=== PATIENT | female | born 1955 | race Caucasian/White ===

== ENCOUNTER → 2018-05-27 11:05 | Outpatient (CLI) | payer OTHER, SELFPAY ==
--- NOTE | 2018-05-27 11:16 | DI.MG.S_ITS ---
Patient Name: KAREN ELLISON date: 1955 Sex: F Attending Physician: Yandy Indications: Date: 05/27/2018 11:16 At the request of: YIMI URIAS Procedure: MM screening mammo BI BILATERAL DIGITAL SCREENING MAMMOGRAM 3D/2D WITH CAD: 05/27/2018 CLINICAL: Routine screening. Family history of breast cancer. Comparison is made to exams dated: 02/06/2017 mammogram, 01/11/2016 mammogram, and 11/16/2014 mammogram - [facility]. There are scattered fibroglandular elements in both breasts. Current study was also evaluated with a Computer Aided Detection (CAD) system. No significant masses, calcifications, or other findings are seen in either breast. IMPRESSION: NEGATIVE There is no mammographic evidence of malignancy. A 1 year screening mammogram is recommended. This exam was interpreted at Station ID: [id number]. NOTE: For mammograms, a report in lay terms will be sent to the patient. Approximately 15% of breast malignancies will not be visualized mammographically. In the management of a palpable breast mass, a negative mammogram must not discourage biopsy of a clinically suspicious lesion. Electronically Signed By: Rashaun sunshine/pennaga:05/27/2018 20:56:57 letter sent: Normal Exam ACR BI-RADS Category 1: Negative 3341F
== END ==
PROVIDERS: PCP Family Medicine; Visit Provider Family Medicine
DX: Z12.31 Encounter for screening mammogram for malignant neoplasm of breast (principal); Z80.3 Family history of malignant neoplasm of breast
CPT/HCPCS: 77063; 77067

== ENCOUNTER → 2018-10-21 10:47 | Outpatient (CLI) | payer OTHER, SELFPAY ==
[2018-10-21 13:09] LABS: Thyroid Stimulating Hormone 2.76 uIU/mL (0.47-4.68)
== END ==
PROVIDERS: PCP Family Medicine; Visit Provider Family Medicine
DX: E03.9 Hypothyroidism, unspecified (principal)
CPT/HCPCS: 36415; 84443

== ENCOUNTER → 2019-01-01 11:34 | Outpatient (CLI) | payer OTHER, SELFPAY ==
[2019-01-01 12:39] LABS: Cholesterol 257 mg/dL (140-199); Glucose 96 mg/dL (80-110); HDL Cholesterol 82 mg/dL (40-60); LDL Cholesterol Calculated 156 mg/dL (<100); Triglycerides 96 mg/dL (35-150)
== END ==
PROVIDERS: PCP Family Medicine; Visit Provider Family Medicine
DX: E03.9 Hypothyroidism, unspecified (principal); E78.5 Hyperlipidemia, unspecified; R73.09 Other abnormal glucose
CPT/HCPCS: 36415; 80061; 82947

== ENCOUNTER → 2020-04-28 12:11 | Outpatient (CLI) | payer OTHER, SELFPAY ==
[2020-04-28 13:45] LABS: Cholesterol 200 mg/dL (140-199); HDL Cholesterol 57 mg/dL (40-60); LDL Cholesterol Calculated 128 mg/dL (<100); Triglycerides 74 mg/dL (35-150)
[2020-04-28 14:15] LABS: Thyroid Stimulating Hormone 1.28 uIU/mL (0.47-4.68)
== END ==
PROVIDERS: PCP Family Medicine; Referring Provider Family Medicine; Visit Provider Family Medicine
DX: Z13.220 Encounter for screening for lipoid disorders (principal); E03.9 Hypothyroidism, unspecified
CPT/HCPCS: 36415; 80061; 84443

== ENCOUNTER → 2020-08-26 12:13 | Outpatient (CLI) | payer OTHER, SELFPAY ==
--- NOTE | 2020-08-26 | DI.MG.S_ITS ---
BILATERAL DIGITAL SCREENING MAMMOGRAM 3D/2D WITH CAD: 08/26/2020 CLINICAL: Routine screening. Family history of breast cancer. Comparison is made to exams dated: 05/27/2018 mammogram, 02/06/2017 mammogram, and 01/11/2016 mammogram - [facility]. There are scattered fibroglandular elements in both breasts. Current study was also evaluated with a Computer Aided Detection (CAD) system. No significant masses, calcifications, or other findings are seen in either breast. There has been no significant interval change. IMPRESSION: NEGATIVE There is no mammographic evidence of malignancy. A 1 year screening mammogram is recommended. This exam was interpreted at Station ID: [id number]. NOTE: For mammograms, a report in lay terms will be sent to the patient. Approximately 15% of breast malignancies will not be visualized mammographically. In the management of a palpable breast mass, a negative mammogram must not discourage biopsy of a clinically suspicious lesion. Electronically Signed By: Juan Francisco fernandez/aretha:08/26/2020 12:40:02 letter sent: Normal Exam ACR BI-RADS Category 1: Negative 3341F
== END ==
PROVIDERS: PCP Family Medicine; Referring Provider Family Medicine; Visit Provider Family Medicine
DX: Z12.31 Encounter for screening mammogram for malignant neoplasm of breast (principal); Z80.3 Family history of malignant neoplasm of breast
CPT/HCPCS: 77063; 77067

== ENCOUNTER → 2021-04-21 11:47 | Outpatient (CLI) | payer OTHER, SELFPAY ==
[2021-04-21 12:34] LABS: Add Manual Diff / Slide Review NO; Basophils Absolute Auto 0 /uL (0-100); Basophils Percent Auto 0.7 % (0-2); Eosinophils Absolute Auto 100 /uL (0-450); Eosinophils Percent Auto 1.9 % (2-4); Hematocrit 41.4 % (36-46); Hemoglobin 14.4 g/dL (12.0-16.0); Lymphocytes Absolute Auto 1800 /uL (1100-4500); Lymphocytes Percent Auto 39.1 % (25-40); Mean Corpuscular HGB Conc 34.7 % (30-36); Mean Corpuscular Hemoglobin 32.5 PG (26-34); Mean Corpuscular Volume 93.8 fL (80-100); Monocytes Absolute Auto 400 /uL (0-900); Monocytes Percent Auto 7.9 % (3-14); Neutrophils Absolute Auto 2300 /uL (1500-7000); Neutrophils Percent Auto 50.4 % (50-75); Platelet Count 272 X10^3/uL (150-400); Red Blood Cell Count 4.42 X10^6/uL (4.0-5.2); Red Cell Distribution Width 13.2 % (11.6-14.8); White Blood Cell Count 4.6 X10^3/uL (4.5-11.0)
[2021-04-21 14:52] LABS: Alanine Aminotransferase 18 IU/L (<35); Albumin 4.2 g/dL (3.5-5.0); Albumin Globulin Ratio 1.7 (1.0-2.8); Alkaline Phosphatase 54 U/L (38-126); Aspartate Aminotransferase 29 IU/L (14-36); BUN Creatinine Ratio 21.7 (6-22); Bilirubin Total 0.8 mg/dL (0.2-1.3); Blood Urea Nitrogen 15 mg/dL (7-17); Calcium 9.7 mg/dL (8.4-10.2); Carbon Dioxide 28 mmol/L (22-32); Chloride 104 mmol/L (98-107); Cholesterol 241 mg/dL (140-199); Estimated Glomerular Filt Rate > 60.0 mL/min (>60); Globulin 2.5 g/dL (1.7-4.1); Glucose 94 mg/dL (80-110); HDL Cholesterol 91 mg/dL (40-60); HEMOLYSIS < 15 (0-50); LDL Cholesterol Calculated 136 mg/dL (<100); Potassium 4.4 mmol/L (3.4-5.1); Sodium 138 mmol/L (137-145); Total Protein 6.7 g/dL (6.3-8.2); Triglycerides 71 mg/dL (35-150)
[2021-04-21 15:23] LABS: Thyroid Stimulating Hormone 2.96 uIU/mL (0.47-4.68)
== END ==
PROVIDERS: PCP Family Medicine; Referring Provider Family Medicine; Visit Provider Family Medicine
DX: E03.9 Hypothyroidism, unspecified (principal)
CPT/HCPCS: 36415; 80053; 80061; 84443; 85025

== ENCOUNTER → 2021-09-27 08:02 | Outpatient (CLI) | payer OTHER, SELFPAY ==
--- NOTE | 2021-09-27 08:04 | DI.MG.S_ITS ---
BILATERAL DIGITAL SCREENING MAMMOGRAM 3D/2D WITH CAD: 09/27/2021 CLINICAL: Routine screening. Family history of breast cancer. Comparison is made to exams dated: 08/26/2020 mammogram, 05/27/2018 mammogram, and 02/06/2017 mammogram - [facility]. There are scattered fibroglandular elements in both breasts. Current study was also evaluated with a Computer Aided Detection (CAD) system. No significant masses, calcifications, or other findings are seen in either breast. There has been no significant interval change. IMPRESSION: NEGATIVE There is no mammographic evidence of malignancy. A 1 year screening mammogram is recommended. This exam was interpreted at Station ID: [id number]. NOTE: For mammograms, a report in lay terms will be sent to the patient. Approximately 15% of breast malignancies will not be visualized mammographically. In the management of a palpable breast mass, a negative mammogram must not discourage biopsy of a clinically suspicious lesion. Electronically Signed By: Garett fall/aretha:09/28/2021 08:30:41 letter sent: Normal Exam ACR BI-RADS Category 1: Negative 3341F
== END ==
PROVIDERS: PCP Family Medicine; Referring Provider Family Medicine; Visit Provider Family Medicine
DX: Z12.31 Encounter for screening mammogram for malignant neoplasm of breast (principal); Z80.3 Family history of malignant neoplasm of breast
CPT/HCPCS: 77063; 77067

== ENCOUNTER → 2022-04-28 09:00 | Outpatient (CLI) | payer MEDICARE, OTHER, SELFPAY ==
[2022-04-29 03:44] LABS: TSH w/ Reflex to FT4 7.23 uIU/mL (0.47-4.68)
[2022-04-30 14:54] LABS: Free T4, Direct Thyroxine 1.57 ng/dL (0.78-2.19)
== END ==
PROVIDERS: PCP Family Medicine; Referring Provider Family Medicine; Visit Provider Family Medicine
DX: E03.9 Hypothyroidism, unspecified (principal)
CPT/HCPCS: 36415; 84439; 84443

== ENCOUNTER → 2022-06-22 11:03 | Outpatient (CLI) | payer MEDICARE, OTHER, SELFPAY ==
[2022-06-22 14:32] LABS: Thyroid Stimulating Hormone 1.45 uIU/mL (0.47-4.68)
== END ==
PROVIDERS: PCP Family Medicine; Referring Provider Family Medicine; Visit Provider Family Medicine
DX: E03.9 Hypothyroidism, unspecified (principal)
CPT/HCPCS: 36415; 84443

== ENCOUNTER → 2022-09-06 14:54 | Outpatient (CLI) | payer MEDICARE, OTHER, SELFPAY ==
[2022-09-06 16:04] LABS: Cholesterol 245 mg/dL (140-199); Glucose 88 mg/dL (80-110); HDL Cholesterol 66 mg/dL (40-60); LDL Cholesterol Calculated 158 mg/dL (<100); Triglycerides 104 mg/dL (35-150)
== END ==
PROVIDERS: PCP Family Medicine; Referring Provider Family Medicine; Visit Provider Family Medicine
DX: E78.5 Hyperlipidemia, unspecified (principal); Z13.1 Encounter for screening for diabetes mellitus
CPT/HCPCS: 36415; 80061; 82947

== ENCOUNTER → 2022-09-14 14:44 | Outpatient (CLI) | payer MEDICARE, OTHER, SELFPAY | PROVIDERS: PCP Family Medicine; Referring Provider Family Medicine; Visit Provider Family Medicine | DX: Z78.0 Asymptomatic menopausal state (principal); Z13.820 Encounter for screening for osteoporosis | CPT/HCPCS: 77080; 77081 ==

== ENCOUNTER → 2022-12-25 09:00 | Outpatient (CLI) | payer MEDICARE, OTHER, SELFPAY ==
--- NOTE | 2022-12-25 09:02 | DI.MG.S_ITS ---
BILATERAL DIGITAL SCREENING MAMMOGRAM 3D/2D WITH CAD: 12/25/2022 CLINICAL: Routine screening. Family history of breast cancer. Comparison is made to exams dated: 09/27/2021 mammogram, 08/26/2020 mammogram, 05/27/2018 mammogram, and 02/06/2017 mammogram - [facility]. There are scattered areas of fibroglandular density in both breasts (category b / 25%-50% glandular tissue). Current study was also evaluated with a Computer Aided Detection (CAD) system. No significant masses, calcifications, or other findings are seen in either breast. There has been no significant interval change. IMPRESSION: NEGATIVE There is no mammographic evidence of malignancy. A 1 year screening mammogram is recommended. This exam was interpreted at Station ID: [id number]. NOTE: For mammograms, a report in lay terms will be sent to the patient. Approximately 15% of breast malignancies will not be visualized mammographically. In the management of a palpable breast mass, a negative mammogram must not discourage biopsy of a clinically suspicious lesion. Electronically Signed By: Corby muñiz/aretha:12/25/2022 10:08:35 letter sent: Normal Exam ACR BI-RADS Category 1: Negative 3341F
== END ==
PROVIDERS: PCP Family Medicine; Referring Provider Family Medicine; Visit Provider Family Medicine
DX: Z12.31 Encounter for screening mammogram for malignant neoplasm of breast (principal); Z80.3 Family history of malignant neoplasm of breast
CPT/HCPCS: 77063; 77067

== ENCOUNTER → 2023-11-22 11:22 | Outpatient (CLI) | payer MEDICARE, OTHER, SELFPAY ==
[2023-11-22 14:43] LABS: Cholesterol 258 mg/dL (140-199); Glucose 84 mg/dL (80-110); Triglycerides 109 mg/dL (35-150)
[2023-11-22 14:58] LABS: HDL Cholesterol 82 mg/dL (40-60); LDL Cholesterol Calculated 154 mg/dL (<100)
[2023-11-22 15:27] LABS: TSH w/ Reflex to FT4 0.77 uIU/mL (0.47-4.68)
== END ==
PROVIDERS: PCP Family Medicine; Referring Provider Family Medicine; Visit Provider Family Medicine
DX: Z13.9 Encounter for screening, unspecified (principal); E03.9 Hypothyroidism, unspecified
CPT/HCPCS: 36415; 80061; 82947; 84443

== ENCOUNTER → 2024-01-18 12:45 | Outpatient (CLI) | payer MEDICARE, OTHER, SELFPAY ==
--- NOTE | 2024-01-18 12:46 | DI.MG.S_ITS ---
BILATERAL DIGITAL SCREENING MAMMOGRAM 3D/2D WITH CAD: 01/18/2024 CLINICAL: Routine screening. Family history of breast cancer. Comparison is made to exams dated: 12/25/2022 mammogram, 09/27/2021 mammogram, and 08/26/2020 mammogram - [facility]. There are scattered areas of fibroglandular density in both breasts (category b / 25%-50% glandular tissue). Current study was also evaluated with a Computer Aided Detection (CAD) system. No significant masses, calcifications, or other findings are seen in either breast. There has been no significant interval change. IMPRESSION: NEGATIVE There is no mammographic evidence of malignancy. A 1 year screening mammogram is recommended. Based on the Tyrer Cuzick model (a risk assessment model) the patient's lifetime risk is 16.5% and her 10 year risk is 8.5%. According to the ACR, ACS, and NCCN guidelines, an annual breast MRI exam along with mammogram is recommended if the patient's lifetime risk is 20% or greater. This exam was interpreted at Station ID: [id number]. NOTE: For mammograms, a report in lay terms will be sent to the patient. Approximately 15% of breast malignancies will not be visualized mammographically. In the management of a palpable breast mass, a negative mammogram must not discourage biopsy of a clinically suspicious lesion. Electronically Signed By: Judie Hi M.D., PH.D eb/pennaga:01/18/2024 13:39:46 letter sent: Normal Exam ACR BI-RADS Category 1: Negative 3341F
== END ==
LOC: MAMMO 12:46
PROVIDERS: PCP Family Medicine; Referring Provider Family Medicine; Visit Provider Family Medicine
DX: Z12.31 Encounter for screening mammogram for malignant neoplasm of breast (principal); Z80.3 Family history of malignant neoplasm of breast; R92.323 Mammographic fibroglandular density, bilateral breasts
CPT/HCPCS: 77063; 77067

== ENCOUNTER → 2024-03-09 08:36 | Outpatient (CLI) | payer MEDICARE, OTHER, SELFPAY ==
--- NOTE | 2024-03-09 | DI.MRI.S_ITS ---
PROCEDURE: MR ANKLE LT WO CON INDICATIONS: LEFT ANKLE PAIN TECHNIQUE: Noncontrast sagittal T1 spin echo and T2 fast spin echo with fat saturation, axial proton density fast spin echo and T2 fast spin echo with fat saturation, coronal T1 spin echo and T2 fast spin echo with fat saturation through the ankle/hindfoot. COMPARISON: [facility], CR, XR ANKLE 3 VIEWS WEIGHT BEARING LEFT, 01/29/2024, 13:46. FINDINGS: Image quality: Excellent. Bones and joints: There is a depressed predominantly transverse fracture of the talar dome. Fracture lines are seen extending to the talar dome articular surface into the sinus tarsi without significant step-off. Moderate osseous edema is seen throughout the talus. There is also mild edema within the distal tibia and within the dorsal calcaneus. Degenerative changes are seen in the 2nd through 4th tarsometatarsal joints and the naviculocuneiform articulations. Nonedematous plantar calcaneal enthesophyte is present. No hindfoot coalitions. Medial structures: Intermediate signal within the deep fibers of the deltoid ligament suspicious for a low-grade sprain. The spring ligament components appear to be intact. Moderate fluid is seen within the medial flexor tendons and may be secondary to communication with the tibiotalar joint versus tenosynovitis. The posterior tibial neurovascular bundle appears normal within the tarsal tunnel, without extrinsic mass effect. Lateral structures: There is complete tearing of the anterior talofibular ligament. Low-grade sprain of the calcaneofibular ligament. Posterior talofibular ligament appears to be intact. There is a low-grade sprain of the anterior tibiofibular ligament. Posterior tibiofibular ligament is intact. There is longitudinal split tearing of the distal peroneus brevis tendon at the level of the distal fibula with tendon reconstitution at the level of the peroneal tubercle. Mild peroneus brevis and longus tenosynovitis. There is effacement of the normal fat signal in the sinus tarsi. Anterior structures: The tibialis anterior, extensor hallucis longus, and extensor digitorum longus tendons appear intact. Posterior and plantar structures: There is moderate Achilles tendinosis. Mild thickening of the proximal plantar fascia is seen without surrounding edema. 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 IMPRESSION: 1. Comminuted depressed fracture of the talar dome and proximal talus with moderate surrounding osseous edema. Fracture lines extend to the talar dome articular surface and sinus tarsi without significant step-off. 2. Mild osseous edema in the dorsal calcaneus and the distal tibia may be reactive or secondary to osseous contusions. 3. Complete tearing of the anterior talofibular ligament. Low-grade sprain of the calcaneofibular ligament. Low-grade sprain of the anterior tibiofibular ligament. 4. Longitudinal split tearing of the peroneus brevis tendon at the level of the distal fibula with distal tendon reconstitution at the level of the peroneal tubercle. Mild peroneus brevis and longus tenosynovitis. 5. Moderate fluid in the medial flexor tendon sheaths may be secondary to tibiotalar joint fluid or tenosynovitis. 6. Moderate Achilles tendinosis. 7. Mild chronic proximal plantar fasciitis. 8. Mild grade 2 fatty infiltration of the abductor osteoarthrosis minimi muscle is suspicious for chronic denervation changes/Massey neuropathy. Approved by: Garett Estrada M.D. on 03/10/2024 at 10:51
== END ==
PROVIDERS: PCP Family Medicine; Referring Provider Orthopaedic Surgery Foot and Ankle Surgery; Visit Provider Orthopaedic Surgery Foot and Ankle Surgery
DX: S92.142A Displaced dome fracture of left talus, initial encounter for closed fracture (principal); S93.492A Sprain of other ligament of left ankle, initial encounter; S93.412A Sprain of calcaneofibular ligament of left ankle, initial encounter; S93.432A Sprain of tibiofibular ligament of left ankle, initial encounter; S96.812A Strain of other specified muscles and tendons at ankle and foot level, left foot, initial encounter; M65.872 Other synovitis and tenosynovitis, left ankle and foot; M72.2 Plantar fascial fibromatosis; X58.XXXA Exposure to other specified factors, initial encounter
CPT/HCPCS: 73721

== ENCOUNTER → 2024-03-14 10:15 | Outpatient (CLI) | payer MEDICARE, OTHER, SELFPAY ==
[2024-03-14 11:37] LABS: Cholesterol 250 mg/dL (140-199); HDL Cholesterol 88 mg/dL (40-60); LDL Cholesterol Calculated 142 mg/dL (<100); Triglycerides 101 mg/dL (35-150)
[2024-03-14 11:46] LABS: Vitamin D 25 Hydroxy (D3) 28.3 ng/mL (30.0-100.0)
== END ==
PROVIDERS: PCP Family Medicine; Referring Provider Orthopaedic Surgery Foot and Ankle Surgery; Visit Provider Orthopaedic Surgery Foot and Ankle Surgery
DX: E55.9 Vitamin D deficiency, unspecified (principal); E78.5 Hyperlipidemia, unspecified
CPT/HCPCS: 36415; 80061; 82306

== ENCOUNTER → 2024-06-10 15:13 | Outpatient (CLI) | payer MEDICARE, OTHER, SELFPAY ==
--- NOTE | 2024-06-10 15:15 | DI.MRI.S_ITS ---
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 COMPARISON: [facility], MR, MR ANKLE LT WO CON, 03/09/2024, 9:07. FINDINGS: Image quality: Excellent. Bones and joints: Extensive edema throughout talus is seen with predominantly transverse fracture of the talar dome again seen without significant changes in overall appearance. Fracture line is noted extending to talar dome articular surface into sinus tarsi without significant step-off. There is interval heterogeneous T2 hypointensity within the talar dome concerning for developing avascular necrosis.. No collapse of the talar dome is seen. Mild edema involving adjacent dorsal aspect of posterior and mid calcaneus adjacent to subtalar joint is seen, decreased compared to previous study. Tiny osteochondral injury involving posterior medial aspect of distal tibial plafond is seen. No other area of abnormal marrow signal. Osteoarthritic changes are noted throughout midfoot and hindfoot joints. Well-defined plantar calcaneal enthesophyte is noted. Small to moderate amount of tibiotalar and subtalar joint effusion, no loose bodies. Medial structures: The posterior tibialis, flexor digitorum longus, and flexor hallucis longus tendons are mildly thickened with small amount of fluid distending tendon sheath at the level of distal talus and talonavicular joint.. The posterior tibial neurovascular bundle appears normal within the tarsal tunnel, without extrinsic mass effect. The deltoid ligament and spring ligament are thickened. Lateral structures: The anterior talofibular ligament is thickened with intrasubstance T2 hyperintense signal. The calcaneofibular, and posterior talofibular ligaments appear intact. More superiorly, the anterior and posterior tibiofibular ligaments appear intact, as is the intermalleolar ligament. The tibiofibular syndesmosis is normal in width at 2 mm or less. Markedly thickened peroneus longus and brevis tendons at the level of lateral malleolus tip extending to their distal insertions with small amount of fluid distending tendon sheath is seen. The sinus tarsi demonstrates normal fatty signal, without edema, fibrosis, or cyst formation. Visualized sinus tarsi components (cervical ligament, interosseous talocalcaneal ligament, roots of the inferior extensor retinaculum) appear normal. Anterior structures: The tibialis anterior, extensor hallucis longus, and extensor digitorum longus tendons appear intact. The dorsal talonavicular ligament appears intact. Posterior and plantar structures: Mild distal Achilles tendinosis near its insertion of posterior calcaneus is seen. No Achilles tendon rupture. Medial and lateral bands of the plantar fascia are of normal thickness. No abductor digiti quinti muscle atrophy to suggest Massey neuropathy. IMPRESSION: 1. Nondisplaced fracture through upper portion of talus/base of talar dome with interval development of geographic area of heterogeneous T1 hypointense and T2 hyperintense signal involving weight-bearing portion of talar dome concerning for developing osteo necrosis. No talar dome collapse is seen. Extensive marrow edema throughout rest of the talus. 2. Mild contusion involving posterior superior aspect of calcaneus without fracture line. No new fracture or dislocation. No other area of abnormal marrow signal. Midfoot and hindfoot joint osteoarthritis. 3. Moderate tibiotalar and subtalar joint effusion, no loose bodies. 4. Low-grade tenosynovitis involving flexor tendons. 5. Moderate grade tenosynovitis and intrasubstance partial-thickness tear involving peroneus tendons as above. 6. Low-grade medial ankle ligament sprain. Moderate grade sprain/intrasubstance partial-thickness tear involving ATFL. No full-thickness ankle ligament rupture. 7. Mild distal Achilles tendinosis. No Achilles tendon rupture. Dictated by: Alvarez Eugene M.D. on 06/11/2024 at 10:16 Approved by: Alvarez Eugene M.D. on 06/11/2024 at 10:38
== END ==
PROVIDERS: PCP Family Medicine; Referring Provider Orthopaedic Surgery Foot and Ankle Surgery; Visit Provider Orthopaedic Surgery Foot and Ankle Surgery
DX: S92.145A Nondisplaced dome fracture of left talus, initial encounter for closed fracture (principal); S90.02XA Contusion of left ankle, initial encounter; S93.492A Sprain of other ligament of left ankle, initial encounter; M19.072 Primary osteoarthritis, left ankle and foot; M87.00 Idiopathic aseptic necrosis of unspecified bone; M25.472 Effusion, left ankle; M65.872 Other synovitis and tenosynovitis, left ankle and foot
CPT/HCPCS: 73721

== ENCOUNTER → 2024-06-23 10:58 | Outpatient (CLI) | payer MEDICARE, OTHER, SELFPAY ==
--- NOTE | 2024-06-23 11:01 | DI.CT.S_ITS ---
PROCEDURE: CT LE RT WO CON INDICATIONS: AVN,MAVEN PROTOCOL TECHNIQUE: Noncontrast 1-1.5 mm axial sections acquired from above the tibiotalar joint to the bottom of the calcaneus, with coronal and sagittal reformats. COMPARISON: [facility] [place], CR, XR ANKLE 3 VIEWS WEIGHT BEARING LEFT, 04/22/2024, 13:09. [facility], MR, MR ANKLE LT WO CON, 06/10/2024, 15:43. FINDINGS: Image quality: Excellent. Bones: Mild lateral tilt of the patella. Joint space of the right knee is grossly well maintained. No acute fracture dislocation extending from the right knee to the right foot. Mild degenerative change of the 1st metatarsophalangeal joint. Multifocal degenerative changes of the midfoot, most pronounced and moderate at the medial cuneiform and the navicular articulation. Small plantar calcaneus enthesophyte. The talus dome is unremarkable. Soft tissues: Mild prepatellar subcutaneous edema. No significant right knee effusion. No right popliteal cyst. Mild subcutaneous edema of the anterior distal leg. The flexors, extensors, peroneal, and the Achilles tendon unremarkable. IMPRESSION: 1. Mild degenerative changes of the 1st metatarsophalangeal joint . Moderate degenerative changes of the midfoot. 2. Please note above finding pertains to the right leg. Dictated by: Germaine Barajas M.D. on 06/23/2024 at 17:58 Approved by: Germaine Barajas M.D. on 06/23/2024 at 18:07
[2024-06-23 14:28] LABS: Vitamin D 25 Hydroxy (D3) 33.6 ng/mL (30.0-100.0)
== END ==
PROVIDERS: PCP Family Medicine; Referring Provider Orthopaedic Surgery Foot and Ankle Surgery; Visit Provider Orthopaedic Surgery Foot and Ankle Surgery
DX: M87.00 Idiopathic aseptic necrosis of unspecified bone (principal); E55.9 Vitamin D deficiency, unspecified; R60.0 Localized edema
CPT/HCPCS: 36415; 73700; 82306

== ENCOUNTER → 2024-07-24 11:56 | Outpatient (CLI) | payer MEDICARE, OTHER, SELFPAY ==
[2024-07-24 12:32] LABS: Add Manual Diff / Slide Review NO; Basophils Absolute Auto 0 /uL (0-100); Basophils Percent Auto 0.8 % (0-2); Eosinophils Absolute Auto 100 /uL (0-450); Hematocrit 41.2 % (36-46); Hemoglobin 14.2 g/dL (12.0-16.0); Lymphocytes Absolute Auto 1700 /uL (1100-4500); Lymphocytes Percent Auto 32.5 % (25-40); Mean Corpuscular HGB Conc 34.3 % (30-36); Mean Corpuscular Hemoglobin 31.8 PG (26-34); Mean Corpuscular Volume 92.7 fL (80-100); Monocytes Absolute Auto 400 /uL (0-900); Monocytes Percent Auto 8.1 % (3-14); Neutrophils Absolute Auto 3000 /uL (1500-7000); Neutrophils Percent Auto 56.6 % (50-75); Platelet Count 273 X10^3/uL (150-400); Red Blood Cell Count 4.45 X10^6/uL (4.0-5.2); Red Cell Distribution Width 13.1 % (11.6-14.8); White Blood Cell Count 5.3 X10^3/uL (4.5-11.0)
--- NOTE | 2024-07-24 12:40 | EKG_ITS ---
[address] [address] Test Date: 2024-07-24 Pat Name: Lilliana Patrick Department[facility] Room: Gender: Female Size Tester: RUSSELL : 1955 Requested By: Order Number: [id number] Reading MD: Galo Yin Measurements Intervals [place] Rate: 49 P: 42 HI: 174 QRS: -23 QRSD: 80 T: 53 QT: 480 QTc: 433 Interpretive Statements Sinus bradycardia Nonspecific T wave abnormality Electronically Signed On 07-25-2024 17:56:43 PDT by Galo Yin
[2024-07-24 13:05] LABS: BUN Creatinine Ratio 20.8 (6-22); Blood Urea Nitrogen 16 mg/dL (7-17); Calcium 9.6 mg/dL (8.4-10.2); Carbon Dioxide 29 mmol/L (22-32); Chloride 104 mmol/L (98-107); Estimated Glomerular Filt Rate > 60 mL/min (>60); Glucose 79 mg/dL (80-110); HEMOLYSIS < 15 (0-50); Potassium 4.2 mmol/L (3.4-5.1); Sodium 136 mmol/L (137-145)
== END ==
PROVIDERS: PCP Family Medicine; Referring Provider Orthopaedic Surgery Foot and Ankle Surgery; Visit Provider Orthopaedic Surgery Foot and Ankle Surgery
DX: Z01.818 Encounter for other preprocedural examination (principal); Z01.812 Encounter for preprocedural laboratory examination
CPT/HCPCS: 36415; 80048; 85025; 93005

== ENCOUNTER 2024-09-03 06:48 | Inpatient (IN) | payer MEDICARE, OTHER, SELFPAY ==
[2024-08-25 09:31] VITALS: BMI 28.0
[2024-09-03] VITALS (13 sets, daily range): BP systolic 106–158; BP diastolic 66–100; PULSE 45–62; RESP 11–17; TEMP 35.6–36.7; O2SAT 95–98; BMI 28.1; BMI 30.4
--- NOTE | 2024-09-03 | DI.RAD.S_ITS ---
PROCEDURE: XR ANKLE LT MIN 3V INDICATIONS: TOTAL TALUS REPLACEMENT TECHNIQUE: Low resolution intraoperative fluoroscopic spot films were obtained COMPARISON: None. FINDINGS: Intraoperative fluoroscopic spot films show total talar replacement in good position. Moderate calcaneal spur present. IMPRESSION: Fluoroscopic guidance Approved by: Gilbert Cordero M.D. on 09/03/2024 at 12:54
[2024-09-03] MEDS: LACTATED RINGERS 1,000 ML 42 ML IV (07:32)
--- NOTE | 2024-09-03 07:38 | PM.PREOP ---
Pre-operative Note Interval Note History & Physical reviewed/Exam performed by Physician: Yes Changes to H&P: No
[2024-09-03] MEDS: ACETAMINOPHEN 325 MG TABLET 975 MG PO (10:37)
[2024-09-03] MEDS: CEFAZOLIN 2 GM/100 ML PREMIX 100 ML IV ×2 (11:30→21:07)
--- NOTE | 2024-09-03 11:46 | SUR.OPER ---
Supine on padded OR bed, head on pillow, arms secured on padded arm boards at <90 degrees abduction, legs uncrossed, operative leg elevated with blankets, blanket roll underneath patient left hip, safety belt at thigh, tape over blanket over lower legs.
[2024-09-03] MEDS: BUPIVACAINE 0.25% (PF) 30 ML, EPINEPHrine 0.15 MG INJ (11:53)
[2024-09-03] MEDS: LACTATED RINGERS 1,000 ML 100 ML IV (14:40)
[2024-09-03] MEDS: ACETAMINOPHEN 325 MG TABLET 650 MG PO ×2 (14:41→21:06)
--- NOTE | 2024-09-03 18:14 | PT-IP ANOTE ---
PT eval received and EMR checked. no available operative notes yet from the doctor. will wait for operative notes for precautions and weight bearing status.
--- NOTE | 2024-09-03 19:54 | PM.OP.1 ---
Operative Date/Time/Diagnoses Date of procedure: 09/03/24 Time of procedure: 19:57 Pre-op diagnosis: Avascular necrosis left talus, ankle sprain, low vitamin-D level, arthritis ankle Post-op diagnosis: same Procedure & Clinicians Procedure: 1. Total left talus replacement: Unlisted procedure leg or ankle CPT code 49140 left compared to total ankle arthroplasty CPT code 12986\ 2. Excision bone spur tibia CPT code 88293, left Same procedure as scheduled: Yes Indications: The patient is a 69-year-old female with left ankle pain and avascular necrosis of her talus over the last 11 months. She is failed extensive conservative treatment with nonweightbearing, bisphosphonates and vitamin-D supplementation. She has been indicated for left total talus replacement. She did have a 2nd opinion in [place] which concurred with the treatment plan. She otherwise has well-preserved tibial cartilage with a small anterior spur. She has been indicated for total talus replacement of the left talus and a spur removal of the distal tibia. The risks and benefits of the procedure have been discussed with the patient and given the opportunity to ask questions. The risks of surgery include but are not limited to infection, malunion, nonunion, persistence of pain, damage to nerves and blood vessels, posttraumatic arthritis, DVT, PE, cardiopulmonary complications and . The patient expressed a thorough understanding of the risks and benefits of surgery and has elected to proceed. Consent was signed in the office. Surgeon: Sherri Gonzales Commercial Manager: Pepito Gamboa Anesthesia Type: General, Peripheral nerve block and Local Operative Notes Findings: Talus avascular necrosis, left. Bone was yellow mon with easily delaminated cartilage during removal Closure Type: primary Specimen(s): none sent Prosthetic devices, grafts, tissues, transplants, or devices: [place] patient's specific talus spacer cobalt chromium nominal size Estimated Blood Loss (mL): 25 Blood products transfused: none Tourniquet time (min): 58 Procedure in detail: Patient was seen in the preoperative area the site of surgery was marked informed consent confirmed this was the left ankle. The patient was seen by the anesthesia team and regional block was placed for postoperative pain control. The patient was then brought back to the operating room by the anesthesia team positioned supine on the operative table. Bony prominences were well padded. A well-padded thigh tourniquet was applied. As well as an ipsilateral thigh bump. The left lower extremity was then prepped and draped in standard sterile fashion a formal time-out procedure was performed confirming the patient's side and site of surgery administration of appropriate preoperative antibiotic. All were in agreement. Attention turned to the left ankle a standard anterior incision bisecting the medial and lateral malleoli and just lateral to the tibial crest was taken from just above the ankle to the navicular. This was approximately 8 cm in length. This taken down through the skin subcutaneous tissue. Care was taken to protect the superficial peroneal nerve branch. The tendon sheath over the EHL was then incised. Interval between the EHL and tibialis anterior was developed with the neurovascular bundle retracted with the EHL. Suppressive dissection was taken onto the distal tibia and ankle joint capsule carefully elevating the capsule using the Bovie cautery creating good thick capsule flaps medially and laterally preserving the attachment and doing suppressive dissection right off the talus bone and distal tibia. Distal tibial spur excision. There was some distal anterior and anterior lateral tibial spurring this was easily removed with a rongeur and a small osteotome. This was the anterior cheilectomy. Once removed remainder of visualized tibial cartilage was intact. The talus was then inspected. Total talus replacement: The talus was inspected it did have a yellow mon hue consistent with avascular necrosis. The cartilage was softened and easily penetrate treatable and delaminated on probing. A PPS saw was used to create a dorsal wedge osteotomy through the talar neck this was removed followed by removing the talar head and then careful transection of the Holding ligaments was completed and an osteotome used to divide and piecemeal remove the posterior talar body. Once all the talus was removed care was taken to irrigate the joint and inspect the subtalar and tibial cartilage which was intact. At this point the trials for the total talus replacement were utilized. The nominal size was placed and taken through range of motion and stressed in dorsiflexion plantar flexion inversion eversion. This was also evaluated under fluoroscopic guidance which provided an excellent anatomic fit range of motion and stability. Next the nominal final cobalt chromium implant was selected soaked in Betadine then rinsed and then inserted into the ankle was gentle plantar flexion and gentle traction on the heel providing adequate space for placement of the implant. Once this was completed it was again trialed through range of motion and inversion eversion and on multiplane fluoroscopy demonstrated excellent alignment range of motion and stability. The wound was thoroughly irrigated capsule was closed with 0 Vicryl. Tendon sheath was closed with 2-0 Vicryl subcutaneous tissue was closed with 3-0 Vicryl and then 4-0 Monocryl and 3-0 nylon suture in the skin. Additional local anesthetic was infiltrated. A well-padded splint was applied and sterile dressing. Patient was awoken from anesthesia and taken to the recovery room in good condition there were no immediate complications from this procedure. Counts were correct. Complications: none Post-operative Condition: stable Disposition: PACU Plan for aftercare: Nonweightbearing x3 weeks in the splint. At 1st postop appointment we will have suture removal and start weight-bearing as tolerated in a tall cam walker boot for the next 3 weeks. At 6 weeks postop the patient will return and begin to wean into a regular shoe and start to work with physical therapy. We will do aspirin 325 mg daily for DVT prophylaxis x6 weeks
[2024-09-03] MEDS: DOCUSATE 100 MG CAPSULE PO (21:06)
[2024-09-03] MEDS: SENNOSIDES 8.6 MG TABLET 17.2 MG PO (21:06)
[2024-09-04] MEDS: OXYCODONE IR 5 MG TABLET PO ×2 (01:09→10:09)
[2024-09-04] MEDS: ACETAMINOPHEN 325 MG TABLET 650 MG PO ×2 (01:35→08:49)
[2024-09-04] MEDS: CEFAZOLIN 2 GM/100 ML PREMIX 100 ML IV (03:35)
[2024-09-04] MEDS: LEVOTHYROXINE 125 MCG TABLET PO (05:15)
[2024-09-04 06:17] LABS: Add Manual Diff / Slide Review NO; Basophils Absolute Auto 0 /uL (0-100); Basophils Percent Auto 0.1 % (0-2); Eosinophils Absolute Auto 0 /uL (0-450); Eosinophils Percent Auto 0.1 % (2-4); Hematocrit 38.2 % (36-46); Lymphocytes Absolute Auto 2000 /uL (1100-4500); Lymphocytes Percent Auto 19.3 % (25-40); Mean Corpuscular HGB Conc 34.1 % (30-36); Mean Corpuscular Hemoglobin 31.5 PG (26-34); Mean Corpuscular Volume 92.3 fL (80-100); Monocytes Absolute Auto 800 /uL (0-900); Monocytes Percent Auto 7.9 % (3-14); Neutrophils Absolute Auto 7600 /uL (1500-7000); Neutrophils Percent Auto 72.6 % (50-75); Platelet Count 268 X10^3/uL (150-400); Red Blood Cell Count 4.14 X10^6/uL (4.0-5.2); White Blood Cell Count 10.4 X10^3/uL (4.5-11.0)
[2024-09-04 06:31] LABS: BUN Creatinine Ratio 19.4 (6-22); Blood Urea Nitrogen 14 mg/dL (7-17); Calcium 8.9 mg/dL (8.4-10.2); Carbon Dioxide 25 mmol/L (22-32); Chloride 105 mmol/L (98-107); Estimated Glomerular Filt Rate > 60 mL/min (>60); Glucose 105 mg/dL (80-110); HEMOLYSIS < 15 (0-50); Sodium 135 mmol/L (137-145)
--- NOTE | 2024-09-04 06:51 | P.DS_ITS ---
History of Present Illness History of Present Illness Date Patient Seen: 09/04/24 Time Patient Seen: 06:51 Chief complaint: Left ankle pain Narrative: Pain has been [id number]. Patient has been up out of bed. Denies numbness tingling in her left lower extremity. No fever or chills. Patient does have assistance at home. Discharge Providers Provider Date of admission: 09/03/24 06:48 Discharge Date: 09/04/24 Primary care physician: Shira Kebede MD Consults: 09/03/24 06:00 Consult to Anesthesiology Routine Comment: Consulting Provider: Anesthesiologist Reason for consultation: Post operative pain managment Has provider been notified: No 09/03/24 14:04 Consult to Discharge Planning Routine Comment: Consult to Occupational Therapy Evaluate & Treat Comment: Physician Instructions: Evaluate and treat Consult to Physical Therapy Evaluate & Treat Comment: Physician Instructions: Evaluate and Treat Discharge provider: Jairon Loomis PA-C Summary Hospital Course Discharge Diagnosis: Avascular necrosis left talus, ankle sprain, low vitamin-D level, arthritis ankle Post-op diagnosis: same Hospital Course: 1. Total left talus replacement: Unlisted procedure leg or ankle CPT code 00839 left compared to total ankle arthroplasty CPT code 18687\ 2. Excision bone spur tibia CPT code 68039, left Same procedure as scheduled: Yes Indications: The patient is a 69-year-old female with left ankle pain and avascular necrosis of her talus over the last 11 months. She is failed extensive conservative treatment with nonweightbearing, bisphosphonates and vitamin-D supplementation. She has been indicated for left total talus replacement. She did have a 2nd opinion in [place] which concurred with the treatment plan. She otherwise has well-preserved tibial cartilage with a small anterior spur. She has been indicated for total talus replacement of the left talus and a spur removal of the distal tibia. The risks and benefits of the procedure have been discussed with the patient and given the opportunity to ask questions. The risks of surgery include but are not limited to infection, malunion, nonunion, persistence of pain, damage to nerves and blood vessels, posttraumatic arthritis, DVT, PE, cardiopulmonary complications and . The patient expressed a thorough understanding of the risks and benefits of surgery and has elected to proceed. Consent was signed in the office. Surgeon: Sherri Gonzales Security Intelligence Analyst: Pepito Gamboa Anesthesia Type: General, Peripheral nerve block and Local Operative Notes Findings: Talus avascular necrosis, left. Bone was yellow mon with easily delaminated cartilage during removal Closure Type: primary Specimen(s): none sent Prosthetic devices, grafts, tissues, transplants, or devices: [place] patient's specific talus spacer cobalt chromium nominal size Estimated Blood Loss (mL): 25 Blood products transfused: none Tourniquet time (min): 58 Patient admitted to the hospital for the above-mentioned procedure. Patient consented to the same. Patient underwent total left talus replacement and excision bone spur tibia, left September 03, 2024. Patient back in her room recovering well as in stable condition. Nonweightbearing x3 weeks in the splint. At 1st postop appointment we will have suture removal and start weight-bearing as tolerated in a tall cam walker boot for the next 3 weeks. At 6 weeks postop the patient will return and begin to wean into a regular shoe and start to work with physical therapy. We will do aspirin 325 mg daily for DVT prophylaxis x6 weeks Patient will work with Physical therapy this morning. She will be discharged home after physical therapy if safe for home environment. Exam Vital Signs (past 8 hours): - 09/03/24 23:49 Temperature 98.1 F Pulse Rate 62 Respiratory Rate 17 Blood Pressure 128/66 Pulse Oximetry 97 Oxygen Delivery Method Room Air Oxygen Flow Rate 0 Narrative Exam Narrative: Pleasant 69-year-old female resting comfortably in bed in no apparent distress. The left lower leg splint is intact. Motor functions intact with patient able to move all toes left foot. Sensation grossly intact to light touch left foot. She has good capillary refill. Const General: cooperative and comfortable Nutritional Appearance: average body habitus Resp Effort & Inspection: normal respiratory effort and able to speak in complete sentences Objective Labs 09/04/24 05:32 09/04/24 05:32 Labs: Laboratory Results - last 24 hr 09/04/24 05:32 WBC 10.4 RBC 4.14 Hgb 13.0 Hct 38.2 MCV 92.3 MCH 31.5 MCHC 34.1 RDW 13.0 Plt Count 268 Neut % (Auto) 72.6 Lymph % (Auto) 19.3 L [place] % (Auto) 7.9 Eos % (Auto) 0.1 L Baso % (Auto) 0.1 Neut # (Auto) 7600 H Lymph # (Auto) 2000 [place] # (Auto) 800 Eos # (Auto) 0 Baso # (Auto) 0 Sodium 135 L Potassium 4.0 Chloride 105 Carbon Dioxide 25 BUN 14 Creatinine 0.72 Estimated GFR > 60 BUN/Creatinine Ratio 19.4 Glucose 105 Calcium 8.9 PFSH Surgical History History of hip replacement Status post tubal ligation Status post delivery Status post bunionectomy Family History Brother Age: 69 Hypertension Father Age: 92 Hypertension High cholesterol Grandfather Heart disease Grandmother Heart disease Mother Age: 90 Breast cancer Grandfather Heart disease Hypertension High cholesterol Grandmother Heart disease Hypertension High cholesterol Social History household members: spouse Smoking Status: Never smoker second hand exposure: No alcohol intake: current substance use type: does not use Discharge Assessment & Plan Assessment and Plan Assessment: Patient progressing as expected Plan of Treatment: Nonweightbearing x3 weeks in the splint. At 1st postop appointment we will have suture removal and start weight-bearing as tolerated in a tall cam walker boot for the next 3 weeks. At 6 weeks postop the patient will return and begin to wean into a regular shoe and start to work with physical therapy. We will do aspirin 325 mg daily for DVT prophylaxis x6 weeks Discharge home today after physical therapy if safe home environment. Discharge Plan Discharge Plan Patient Disposition: Home Provider Discharge Comment: DC home after PT Discharge orders & Medications Prescriptions: Continued levothyroxine 125 mcg tablet 125 mcg PO DAILY Qty: 90 2RF multivitamin Tablet 1 tab PO DAILY cholecalciferol (vitamin D3) [Vitamin D3] 125 mcg (5,000 unit) Tablet 125 mcg PO DAILY Follow up/Referrals: Sherri Gonzales MD [Physician] - (Call for appt in 3 weeks) Shira Kebede MD [Primary Care Provider] - Diet/Activity/Treatments Diet: Diet as Tolerated Activity: Nonweightbearing x3 weeks in the splint. At 1st postop appointment we will have suture removal and start weight-bearing as tolerated in a tall cam walker boot for the next 3 weeks. At 6 weeks postop the patient will return and begin to wean into a regular shoe and start to work with physical therapy. We will do aspirin 325 mg daily for DVT prophylaxis x6 weeks Skin/Wound/Dressing Care Report to your healthcare provider any signs of infection, such as:: chills, fever, night sweats, increased pain, unusual drainage and unusual redness Visit Report/Discharge Packet Stand Alone Forms: Patient Portal/API, Stroke Signs & Symptoms, Surgery Discharge Discharge Data Primary Care Provider: Shira Kebede VTE Deep Vein Thrombosis/Pulmonary Embolism Present on Admission: No
[2024-09-04 08:00] VITALS: BP 130/82; PULSE 51; RESP 15; TEMP 36.5; O2SAT 99
[2024-09-04] MEDS: polyethylene glycoL 3350 17 GM POWD.PACK PO (08:48)
[2024-09-04] MEDS: ASPIRIN EC 325 MG TABLET PO (08:49)
[2024-09-04] MEDS: DOCUSATE 100 MG CAPSULE PO (08:50)
--- NOTE | 2024-09-04 09:05 | OT.IP.EVAL ---
Current Diagnoses Primary osteoarthritis, left ankle and foot (09/03/24) Idiopathic aseptic necrosis of left ankle (09/03/24) Other specified abnormal findings of blood chemistry (09/03/24) Sprain of unspecified ligament of left ankle, initial encounter (09/03/24) Surgery Performed Operation Date: 09/03/24 10:30 Actual Procedures p Total Talus Replacement(Left) - Sherri Gonzales MD Surgical History (Last Reviewed 09/04/24 @ 06:54 by Jiaron Loomis PA-C) History of hip replacement Status post bunionectomy Status post delivery Status post tubal ligation Occupational Therapy Inpatient Evaluation/Re-Eval M1 PT/OT-IP Prior Functional Status Start: 09/04/24 09:10 Freq: NEEDED Status: Active Protocol: Document 09/04/24 09:12 [facility] (Rec: 09/04/24 09:19 [facility] [id number]) Medical Review Prior Functional Status Communication Independent Mobility and Gait Pt had been using crutches and scooter at home. Activities of Daily Living and IADL's Independent, assist with IADL needs. Social History Household Members spouse Living Arrangements House Number of Floors (Floors) One Floor Number of Stairs To Enter/Railing? 1/2 step to enter. Home Environment Standard Height Toilet,High Toilet,Tub/Shower Home Equipment Front Wheel Walker,Straight Cane,Crutches,Hand Held Shower ,Grab Bars In Shower Additional Social History Comment Pt has a knee scooter and I walker. M2 OT-IP Current Condition Start: 09/04/24 09:10 Freq: Status: Active Protocol: Document 09/04/24 09:12 [facility] (Rec: 09/04/24 09:19 [facility] [id number]) Occupational Therapy Current Condition Current Condition Evaluation Date 09/04/24 Treatment Diagnosis S/P Left total talus replacement Diagnosis Onset Date 09/03/24 Weight Bearing Status Weight Bearing Status Non-Weight Bearing Allowed Weight Bearing Amount (enter % Left LE or #) (%) M3 OT- IP Subjective and Pain Start: 09/04/24 09:10 Freq: Status: Active Protocol: Document 09/04/24 09:12 [facility] (Rec: 09/04/24 09:19 [facility] [id number]) OT- Subjective Occupational Therapy Visit Type Type Initial Evaluation Visit Start Time 08:40 Visit Stop Time 09:05 Occupational Therapy Visit Comments Patient Comments Pt agreed to get up and get dressed. Patient/Caregiver Goals TO go home. OT Pain Assessment Pain When Pain Assessed At Rest Pain Present Pain Present Pain Reported Location Left Foot Intensity 3 Scale Used Numeric (0 - 10) M4 OT- IP ADL's Start: 09/04/24 09:10 Freq: Status: Active Protocol: Document 09/04/24 09:12 [facility] (Rec: 09/04/24 09:19 [facility] [id number]) OT IZJ-[id number]-[id number] General Evaluation Self-Feeding Ability Independent OT ADL-Grooming General Evaluation Grooming Ability Independent OT ADL-Oral Care Comments Oral Care Comments Not performed. OT ADL-Dressing General Eval Upper Body Dressing Ability Independent Lower Body Dressing Ability Standby Assistance Comments OT Dressing Comments Pt able to do with use of FWW. OT ADL-Toileting General Evaluation Toileting Ability Independent OT ADL-Bathing Comments OT Bathing Comments Pt to get a shower chair. M5 OT- IP IADL's Start: 09/04/24 09:10 Freq: Status: Active Protocol: Document 09/04/24 09:12 [facility] (Rec: 09/04/24 09:19 [facility] [id number]) OT-Instrumental Activities of Daily Living Home Safety Awareness Awareness of Need for Assistance at Home Good Awareness Ability to Problem Solve Emergency Able to Problem Solve Situations Medication Management Medication Management No Deficits Identified Meal Preparation Meal Preparation Caregiver Provides Assist Disaster Response Director Disaster Response Director Caregiver Provides Assist M6 OT- IP Functional Cognition Start: 09/04/24 09:10 Freq: Status: Active Protocol: Document 09/04/24 09:12 [facility] (Rec: 09/04/24 09:19 [facility] [id number]) Cognitive Factors Limiting Selfcare Function Cognitive Ability Level of Alertness Alert Patient Orientation Name,Age,Birthday,Month,Date, Year,Day of Week,Place, Situation Attention Span Ability Capable of Focused Attention, Capable of Sustained Attention Ability to Follow Commands Able to Follow Multi-Step Commands Memory Description No Deficits Noted Cognitive Comments Cognitive Assessment Comments Intact OT- Vision and Hearing OT- Hearing Assessment OT- Hearing Assessment WFL OT- Vision Assessment Visual Attentiveness WFL Occular Pursuits WFL Vision Assessment Comments Use of glasses for distance. M7 OT- IP Mobility and Balance Start: 09/04/24 09:10 Freq: Status: Active Protocol: Document 09/04/24 09:12 [facility] (Rec: 09/04/24 09:19 [facility] [id number]) OT- Bed Mobility Assessment Supine to Sit Supine to Sit Assist Independent Sit to Supine Sit to Supine Assist Independent Scooting Scooting to Edge of Bed Independent Scooting Up and Down in Bed Independent OT-Transfer Assessment Sit to and From Stand Sit to and from Stand Independent Transfers Transfer Ability Independent Technique Transfer Destination Bed Transfer Technique Stand Step Pivot Devices Transfer Assistive Devices Gait Belt,Front Wheeled Walker Comments Mobility Comments MOD I with the FWW in the room , DENNIS for a high step with PT . OT- Balance Assessment Sitting Balance and Reactions Static Sitting Balance Ability Normal Dynamic Sitting Balance Ability Normal Standing Balance and Reactions Static Standing Balance Ability Good Dynamic Standing Balance Ability Fair M8 OT- IP Objective Assessments Start: 09/04/24 09:10 Freq: Status: Active Protocol: Document 09/04/24 09:12 [facility] (Rec: 09/04/24 09:19 [facility] [id number]) OT Gross Range of Motion Upper Extremity Range of Motion Assessment Within Functional Limits OT Strength Upper Extremity Strength Assessment Within Functional Limits M9 OT- IP Assessment and Plan Start: 09/04/24 09:10 Freq: Status: Active Protocol: Document 09/04/24 09:12 [facility] (Rec: 09/04/24 09:19 [facility] [id number]) OT Summary Assessment and Plan Potential Rehabilitation Potential Excellent Analytic Complexity at Evaluation Low Summary OT Impairments Pain,Functional Mobility Progress Towards Goals Progressing Toward Goals Assessment Summary Pt low complexity and main barriers are pain, step and showering. Able to talk about getting shower chair and bagging her left foot from getting wet. Pt has a supportive to assist with her needs at home. Goals Bathing Goal Standby Assistance Shower Transfer Goal Standby Assistance Days to Meet Goals 2 Frequency of Treatment Frequency Of Treatment Once a Day Treatment Plan OT Treatment Plan ADL Training,Functional Mobility,Patient/Family Education,Discharge Planning Discharge Recommendations OT Discharge Recommendations Home with 04/06 Assist Available Home Equipment Needs shower chair Transportation Needs at Discharge Private Vehicle
--- NOTE | 2024-09-04 09:20 | PT.IIE ---
Current Diagnoses Primary osteoarthritis, left ankle and foot (09/03/24) Idiopathic aseptic necrosis of left ankle (09/03/24) Other specified abnormal findings of blood chemistry (09/03/24) Sprain of unspecified ligament of left ankle, initial encounter (09/03/24) Surgery Performed Operation Date: 09/03/24 10:30 Actual Procedures p Total Talus Replacement(Left) - Sherri Gonzales MD Surgical History (Last Reviewed 09/04/24 @ 06:54 by Jairon Loomis PA-C) History of hip replacement Status post bunionectomy Status post delivery Status post tubal ligation Physical Therapy Inpatient Evaluation/Re-Eval M1 PT/OT-IP Prior Functional Status Start: 09/04/24 07:42 Freq: NEEDED Status: Active Protocol: Document 09/04/24 08:40 [facility] (Rec: 09/04/24 09:20 [facility] [id number]) Medical Review Prior Functional Status Medical History Reviewed Yes Diet/Fluid Consistency Regular Communication WNLs Mobility and Gait Mod I with one crutch, also was using knee scooter occ, had knee walker as well Social History Household Members spouse Living Arrangements House Number of Floors (Floors) One Floor Number of Stairs To Enter/Railing? 1/2 step to enter Home Environment Standard Height Toilet,High Toilet,Walk in Shower Home Equipment Crutches,Hand Held Shower,Grab Bars In Shower Employment Status Retired Additional Social History Comment Flat bed, knee walker, knee scooter M1 PT/OT-IP Prior Functional Status Start: 09/04/24 09:10 Freq: NEEDED Status: Active Protocol: Document 09/04/24 09:12 [facility] (Rec: 09/04/24 09:19 [facility] [id number]) Medical Review Prior Functional Status Communication Independent Mobility and Gait Pt had been using morgan and scootere at home. Activities of Daily Living and IADL's Independent, assist with IADL needs. Social History Household Members spouse Living Arrangements House Number of Floors (Floors) One Floor Number of Stairs To Enter/Railing? 1/2 step to enter. Home Environment Standard Height Toilet,High Toilet,Tub/Shower Home Equipment Front Wheel Walker,Straight Cane,Crutches,Hand Held Shower ,Grab Bars In Shower Additional Social History Comment Pt has a knee scooter and I walker. M2 PT-IP Current Condition Start: 09/04/24 07:42 Freq: NEEDED Status: Active Protocol: Document 09/04/24 08:40 [facility] (Rec: 09/04/24 09:20 [facility] [id number]) Physical Therapy Current Condition Current Condition Evaluation Date 09/04/24 Treatment Diagnosis L total talus replacement M3 PT-IP Subjective Start: 09/04/24 07:42 Freq: NEEDED Status: Active Protocol: Document 09/04/24 08:40 [facility] (Rec: 09/04/24 09:20 [facility] [id number]) Subjective Physical Therapy Visit Type Type Initial Evaluation Visit Start Time 08:40 Visit Stop Time 09:05 Number of COAT AGENT Visits 0 Physical Therapy Visit Comments Patient Comments Pt A&O and many good questions about d/c recs are far as mobility, walker and PT Therapy Pain Assessment Pain When Pain Assessed At Rest Pain Present Pain Present Pain Reported Location Left Foot Intensity 3 Scale Used Numeric (0 - 10) M4 PT-IP Mobility and Gait Start: 09/04/24 07:42 Freq: NEEDED Status: Active Protocol: Document 09/04/24 08:40 [facility] (Rec: 09/04/24 09:20 [facility] [id number]) PT-Bed Mobility Assessment Rolling Level of Assist Independent Supine to Sit Supine to Sit Independent Sit to Supine Sit to Supine Independent Scooting Scooting to Edge of Bed Independent Scooting Up and Down in Bed Independent PT-Transfer Assessment Sit to and From Stand Sit to and from Stand Standby Assistance Equipment Transfer Assistive Device Gait Belt,Front Wheeled Walker Orthotic/Prosthetic Devices or Brace: No Transfers Transfer Destination Bed Transfer Technique Hop gait Transfer Ability Level of Assist Standby Assistance,1 Person Assistance,Use of Upper Extremities Comments Mobility Comments STS to RW and also to knee scooter and pt does well with both, cues to reach back for the bed before sitting and to push up from it Gait Assessment Gait Gait Assistance Required: Standby Assistance Distance (Feet) 25 Able to Maintain Weight Bearing Status Yes During Gait Assistive Devices Assistive Device Gait Belt,Front Wheeled Walker Orthotic/Prosthetic Devices or Brace: No Gait Deviations General Gait Pattern Antalgic Comments Gait Comments Hop gait with RW in room 25'x2 and knee scooter mobility x75 ' with SBA Stair Climbing Assessment Evaluation Level of Assist On Stairs Minimal Assistance Devices Stair Climbing Assistive Devices Front Wheel Walker Technique/Endurance Stair Climbing Direction Ascend and Descend Stair Climbing Technique Step to Step Number of Steps Climbed 1 Query Text: Stair Climbing Set # Repetitions (reps) 1 Comments Stair Climbing Comments One step in room and hop up backwards and hop down forwards, assistance holding walker and cues to keep left ( injured) leg in front for balance and safety, hop up first leading right leg and descend leading LLE PT-Balance Assessment Sitting Balance and Reactions Static Sitting Balance Ability Normal Dynamic Sitting Balance Ability Good Standing Balance and Reactions Static Standing Balance Ability Good Dynamic Standing Balance Ability Good Device Used RW, knee scooter M5 PT-IP Objective Assessments Start: 09/04/24 07:42 Freq: NEEDED Status: Active Protocol: Document 09/04/24 08:40 [facility] (Rec: 09/04/24 09:20 [facility] [id number]) Orientation Orientation/Cognition Level of Alertness Alert Orientation Name,Age,Birthday,Month,Date, Year,Day of Week,Place, Situation Language Function Ability No Deficits Noted Safety Awareness Understands Safety Issues Memory Description No Deficits Noted Gross Range of Motion Upper Extremity ROM Impairments Defer to OT Lower Extremity ROM Assessment Left Impaired Strength Lower Extremity Strength Assessment Left Impaired Comments Strength Comments Left ankle in splint Coordination Assessment Gross Coordination Gross Coordination Impaired Sensation Assessment Comments Sensation Comments Left distal extremity in splint M6 PT-IP Treatment Start: 09/04/24 07:42 Freq: NEEDED Status: Active Protocol: Document 09/04/24 08:40 [facility] (Rec: 09/04/24 09:20 MB [id number]) Physical Therapy Treatment Education Education Provided Precautions,Weight Bearing Status,Safety Other Treatments Other Treatment Performed Step training, multiple AD training, set up her crutch, ed in benefits of RW for in- home mobility, answering other questions about PT at d/c, follow-up with MD, etc M7 PT-IP Assessment and Plan Start: 09/04/24 07:42 Freq: NEEDED Status: Active Protocol: Document 09/04/24 08:40 [facility] (Rec: 09/04/24 09:20 MB [id number]) PT Summary Assessment and Plan Potential Rehabilitation Potential Excellent Status of Condition at Evaluation Evolving Summary Assessment Summary Pt is a pleasant 69 y/o female who has been using AD at home over the past months d/t left ankle issues. She asks good questions and does well with transfers and gait with RW and knee scooter today. Step mobility with hop gait is new to patient and she requires cues and min A and pt feels she can show her how to do this at d/c, ascend backwards with RW and 2nd person holding RW. No further acute PT needs. Frequency of Treatment Frequency Of Treatment Discharge Weight Bearing Status Weight Bearing Status Non-Weight Bearing Allowed Weight Bearing Amount (enter % LLE or #) (%) Recommendations To Nursing Amount of Assist Needed 1 Person Assist Discharge Recommendations PT Discharge Recommendations Home with Assistance Transportation Needs at Discharge Private Vehicle
--- NOTE | 2024-09-04 11:07 | PC.NURSE ---
Day shift: Discharge instructions gone over with patient and patient's SO. All questions answered, patient stated understanding. PIV removed prior to discharge. All belongings with patient. Patient states she has a reservation on the 1230pm ferry back to [place] so she does not need a medical priority boarding pass. BART Dodd escorted patient via wheelchair to exit.
--- NOTE | 2024-09-04 11:23 | CM.DANOTE ---
Initial DCP Assessment Visit Note Reviewed EMR and team rounds for status updates, met with pt and spouse at bedside to introduce self and role. Pt was found to be alert/oriented, dressed, and preparing form home d/c. She lives independently at baseline with her spouse in their own home on [address], her spouse will transport her home, they did already have a ferry reservation. No CM discharge needs are identified during this admission. Payor: Medicare Attending: Dr. Gonzales Pt is a 69 year-old F post-op day 1 from a L-ankle surgery. 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 She actually fell going into her backyard and landed on her ankle, creating the initial fracture. She is doing well postoperatively with good pain control, and has been able to work with both PT/OT prior to d/c. She will plan to f/u with Ortho OP to determine next steps. No further needs for d/c identified at this time. Discharge Planning/Care Management Advanced directive, confirm from FAMILY Start: 09/03/24 14:40 Freq: Q24H Status: Discharge Protocol: Document 09/03/24 16:32 SB (Rec: 09/03/24 16:32 SB [id number]) Advance Directive, confirm on record Time 16:32 Person contacted pt Copy received No CM Discharge Assessment Start: 09/04/24 11:20 Freq: Status: Active Protocol: Document 09/04/24 11:20 DPL (Rec: 09/04/24 11:23 DPL [id number]) Discharge Planning Assessment Assigned Medical Delivery Driver KEITH Hernandez Advance Directives? Yes Advance Directives on File No History Provided By Patient,Family Member,Medical Record Has Patient been admitted in last 30 No days? Prior Living Arrangements House Household Members spouse Type of transporation used prior to Drives own vehicle admit Independent with ADL's Yes: She has needed a knee scooter for a few months prior to surgery. Is patient alert and oriented? Yes Needs Assistance With Home Chores / Shopping Caregiver for Another No DME Already Rented / Owned Crutches Comment knee scooter Patient/Family Preference OP PT Therapy Barriers to Discharge No Discharge Plan Home Community Services Physical Therapy Transportation Arrangement Spouse Referrals Initiated None needed Whiteboard Updated in Patient Room with Yes name and ext. # of Medical Delivery Driver Review Status In Process Please Provide Date Initial DC 09/04/24 Assessment Was Performed Pre-Anesthesia Assessment Start: 08/25/24 09:31 Freq: Status: Complete Protocol: Document 08/25/24 09:31 LB (Rec: 08/25/24 10:20 LB [id number]) Pre-Anesthesia Assessment PAC Comment 08/25/24 Phone assessment. Preferred Name Sandra Patient Information Reviewed Via Phone Assessment Assessment Completed With Patient Diagnostic Results BMP/CMP,CBC,EKG Comment 07/24/24 at . Primary Care Provider Shira Kebede Medical Clearance Received Not Applicable Seen Specialist in Last 12 Months Yes Specialist Seen Orthopedist Primary Language Citizen [place] Preferred Language Citizen [place] High Risk Case Manager Required No Height 170.18 cm Weight 81.193 kg Body Mass Index (BMI) 28.0 Hearing Ability Normal Visual Assist Glasses Dentition Type Teeth, Natural Present Barriers to Learning None Other Aids No Hx Anesthesia Reactions Yes: Hypotensive with spinal. Hx Family Anesthesia Reaction No Hx Malignant Hyperthermia No Hx Blood Transfusions No Anesthesia Review Requested No Staffing Analyst No alcohol intake current alcohol intake frequency holidays/special occasions only Smoking Status Never smoker Substance Use Type does not use Pain Present Pain Reported Comment Left ankle. Musculoskeletal Symptoms Difficulty Walking,Joint Pain History of Falling (Recent or History of No ) Patient is completely paralyzed or No completely immobile Prosthesis or Orthotic Device Crutches Mental Status Oriented to own ability Comment walking boot and scooter. Is patient on oxygen? No Does patient have VELASQUEZ/SOB No Hx Sleep Apnea No CPAP/BIPAP use not prescribed Currently Taking a Beta Lola No Can You Climb a Flight of Stairs Without Yes SOB Hx Chest Pain No Hx SOB No Hx Syncope or Dizziness Yes: With spinal anesthesia. Anti-Coagulant Therapy No Has a Solution Spec No Hx Pacemaker/ICD No Cardiac Clearance Received Not Applicable Dysphagia No Chronic UTI No Bladder Pattern Nocturia Urinary Catheter Present No Hx Urinary Self Catheterization No Diabetes No Patient No Lactating No Presence of External or Internal Medical Yes: left hip, wire left foot. Devices Have you had any close contact with No someone diagnosed with COVID-19? Are you experiencing any of these No symptoms symptoms? Received a COVID vaccine? Yes Marital Status Lives With spouse Current Living Arrangements House Number of Floors (Floors) Two Floors Number of Stairs To Enter/Railing? no stairs to enter, main floor bedroom. Support System Spouse Does the Patient Have Assistance After Yes Surgery Patient Discharge Plan Description Return Home Additional comment Advised over night LOS. Emergency Contact Name Vito Patrick - Emergency Contact Advance Directives? Yes Advance Directives on File No Requested Patient Bring Advanced Yes Directives DOS Power of Track Supervisor Yes Power of Track Supervisor Name Vito Patrick - Power of Track Supervisor PAC Instructions Assistance for 24 hours post- op,Do not shave/clip surgical site,Durable medical equipment ,Medications to take/avoid, Nasal antibiotic,No ETOH/ petroleum product on skin DOS, NPO,Post-op transportation,Pre -surgical wash,Sensory aids, Sturdy shoes/comfortable clothes,Do not bring valuables and remove jewelry
== END 2024-09-04 11:00 | disposition home or self-care (01) | DRG 494 ==
PROVIDERS: Admitting Provider Orthopaedic Surgery Foot and Ankle Surgery; PCP Family Medicine; Referring Provider Orthopaedic Surgery Foot and Ankle Surgery; Visit Provider Orthopaedic Surgery Foot and Ankle Surgery
PROC: 0QR Lower Bones, Replacement (ICD-10-PCS; CPT 27702; principal; 2024-09-03 10:30)
DX: M87.072 Idiopathic aseptic necrosis of left ankle (principal); M19.072 Primary osteoarthritis, left ankle and foot; S93.402A Sprain of unspecified ligament of left ankle, initial encounter; R79.89 Other specified abnormal findings of blood chemistry; E07.9 Disorder of thyroid, unspecified; W01.0XXD Fall on same level from slipping, tripping and stumbling without subsequent striking against object, subsequent encounter
CPT/HCPCS: 36415; 64450; 73610; 76000; 80048; 85025; 97161; 97165; 97535; J0171; J0690; J1100; J1885; J2250; J2405; J2704; J3010

== ENCOUNTER → 2025-02-15 10:42 | Outpatient (CLI) | payer MEDICARE, OTHER, SELFPAY ==
[2024-09-03 14:40] VITALS: BMI 30.4
[2025-02-15 11:43] LABS: Influenza A - CEPHEID Flu A POSITIVE (NEGATIVE); Influenza B - CEPHEID Flu B NEGATIVE (NEGATIVE); Respiratory Syncytial Virus Negative (Negative)
[2025-02-15 11:45] LABS: COVID-19 CEPHEID 4-PLEX PCR Negative (Negative)
== END ==
PROVIDERS: PCP Family Medicine; Visit Provider Registered Nurse
DX: R05.9 Cough, unspecified (principal); R50.9 Fever, unspecified
CPT/HCPCS: 0241U

== ENCOUNTER → 2025-02-15 11:10 | Outpatient (CLI) | payer MEDICARE, OTHER, SELFPAY ==
[2024-09-03 14:40] VITALS: BMI 30.4
--- NOTE | 2025-02-15 11:11 | DI.RAD.S_ITS ---
PROCEDURE: XR CHEST 2V INDICATIONS: Shortness of breath. TECHNIQUE: 2 views of the chest were acquired. COMPARISON: None. FINDINGS: Surgical changes and devices: None. Lungs and pleura: Lungs are clear. No pleural effusions or pneumothorax. Mediastinum: Mediastinal contours are normal. Heart size is normal. Bones and chest wall: No suspicious bony abnormalities. Soft tissues appear unremarkable. IMPRESSION: No acute cardiopulmonary abnormality is seen. Approved by: Gilbert Cordero M.D. on 02/15/2025 at 11:42
== END ==
PROVIDERS: PCP Family Medicine; Referring Provider Registered Nurse; Visit Provider Registered Nurse
DX: R06.02 Shortness of breath (principal); R05.9 Cough, unspecified; R50.9 Fever, unspecified
CPT/HCPCS: 0241U; 71046

== ENCOUNTER → 2025-04-01 15:57 | Outpatient (CLI) | payer MEDICARE, OTHER, SELFPAY ==
[2024-09-03 14:40] VITALS: BMI 30.4
--- NOTE | 2025-04-01 15:59 | DI.MG.S_ITS ---
MM screening mammo BI: 04/01/2025. BI-RADS: 1 CLINICAL: 70-year old female for bilateral screening mammogram. Tyrer-Cuzick lifetime risk of 5.8%. No personal or first-degree family history of breast cancer. History of ovarian cancer in one first-degree relative. PRIOR EXAMS 01/18/2024, 12/25/2022, 09/27/2021, 08/26/2020, 05/27/2018, 02/06/2017, 01/11/2016. MAMMOGRAPHY TECHNIQUE: 2D and 3D (tomosynthesis) digital mammographic views obtained, with additional images as needed for full coverage. Current study was also evaluated with a Computer Aided Detection (CAD) system. DENSITY B. There are scattered areas of fibroglandular density. MAMMOGRAPHY FINDINGS Bilateral: No suspicious mass, asymmetry, microcalcification, or other abnormality seen. IMPRESSION: * No evidence of malignancy. RECOMMENDATIONS Bilateral * Annual screening mammography. OVERALL ASSESSMENT CATEGORY BI-RADS-1: Negative. The [employer] recommends annual screening mammography beginning at age 40 for women with average risk of breast cancer. ELECTRONICALLY SIGNED: Judie Hi M.D. on 04/02/2025 at 07:04:08 AM PT Interpreting Station ID: [id number]
== END ==
PROVIDERS: PCP Family Medicine; Referring Provider Family Medicine; Visit Provider Family Medicine
DX: Z12.31 Encounter for screening mammogram for malignant neoplasm of breast (principal); Z80.41 Family history of malignant neoplasm of ovary
CPT/HCPCS: 77063; 77067

== ENCOUNTER → 2025-06-23 12:17 | Outpatient (CLI) | payer MEDICARE, OTHER, SELFPAY ==
[2024-09-03 14:40] VITALS: BMI 30.4
[2025-06-23 14:35] LABS: Cholesterol 221 mg/dL (140-199); Glucose 86 mg/dL (70-99); HDL Cholesterol 59 mg/dL (40-60); Triglycerides 116 mg/dL (35-150)
[2025-06-23 15:04] LABS: Thyroid Stimulating Hormone 0.174 uIU/mL (0.47-4.68)
== END ==
PROVIDERS: PCP Family Medicine; Referring Provider Family Medicine; Visit Provider Family Medicine
DX: E03.9 Hypothyroidism, unspecified (principal)
CPT/HCPCS: 36415; 80061; 82947; 84443

== ENCOUNTER → 2025-08-12 15:52 | Outpatient (CLI) | payer MEDICARE, OTHER, SELFPAY ==
[2024-09-03 14:40] VITALS: BMI 30.4
[2025-08-12 17:15] LABS: Thyroid Stimulating Hormone 0.344 uIU/mL (0.47-4.68)
== END ==
PROVIDERS: PCP Family Medicine; Referring Provider Family Medicine; Visit Provider Family Medicine
DX: R53.83 Other fatigue (principal)
CPT/HCPCS: 36415; 84443

== ENCOUNTER → 2025-10-12 14:30 | Outpatient (CLI) | payer MEDICARE, OTHER, SELFPAY ==
[2024-09-03 14:40] VITALS: BMI 30.4
[2025-10-12 16:12] LABS: Thyroid Stimulating Hormone 1.73 uIU/mL (0.47-4.68)
== END ==
PROVIDERS: PCP Family Medicine; Referring Provider Family Medicine; Visit Provider Family Medicine
DX: E03.9 Hypothyroidism, unspecified (principal)
CPT/HCPCS: 84443